=== PATIENT | female | born 1980 | race Caucasian/White ===

== ENCOUNTER 2017-09-20 01:43 | Emergency (ER) | payer OTHER ==
[~2017-09-20] VITALS: Ht 177.8 cm; Wt 119.7 kg
[~2017-09-20 01:43] MED LIST: ALBUTEROL17 G1 IH; BACTRIM,SEPT1 TABLET PO; MEDROL DOSEPAK4 MG PO; PROAIR HFA8.5 GM IH; TESSALON200 MG PO; ZYRTEC-D1 TABLE1 PO
[2017-09-20 02:29] LABS: HEMATOCRIT 38.2 % (36.0-46.0); HEMOGLOBIN 13.1 G/DL (11.9-15.5); MCH 29.2 PG (29.0-34.0); MCHC 34.3 G/DL (30.0-36.0); MCV 85.1 FL (83-99); PLATELET COUNT 259 K/uL (156-360); RBC DIS.WIDTH-CV 12.4 % (11.8-14.6); RBC DIS.WIDTH-SD 38.3 % (39-53); RED BLOOD COUNT 4.49 M/uL (3.80-5.20)
[2017-09-20 02:39] LABS: ALBUMIN 4.1 g/dL (3.2-4.8)
[2017-09-20 02:40] LABS: CHLORIDE 105 mEq/L (99-109); POTASSIUM 4.2 mEq/L (3.7-5.4); SODIUM 135 mEq/L (136-147)
[2017-09-20 02:42] LABS: GLUCOSE 112 mg/dL (70-99); TOTAL PROTEIN 7.3 g/dL (6.4-8.3)
[2017-09-20 02:44] LABS: TOTAL BILIRUBIN 0.4 mg/dL (0.0-1.0)
[2017-09-20 02:45] LABS: ALKALINE PHOSPHATASE 74 IU/L (3-129)
[2017-09-20 02:46] LABS: CREATININE 0.8 mg/dL (0.6-1.3); GFR ESTIMATE (CALCULATED) > 59 mL/min/
[2017-09-20 02:47] LABS: AST (GOT) 13 IU/L (2-34); UREA NITROGEN (BUN) 12 mg/dL (9-23)
[2017-09-20 02:48] LABS: ALT (GPT) 12 IU/L (3-49)
[2017-09-20 02:55] LABS: QUANTITATIVE HCG < 4.0 MIU/ML
[2017-09-20 04:24] LABS: APPEARANCE SL.HAZY ((CLEAR)); BILIRUBIN NEGATIVE; BLOOD SMALL; COLOR YELLOW ((YELLOW)); GLUCOSE (STRIP) NEGATIVE; KETONES NEGATIVE; LEUKOCYTES TRACE; NITRITE NEGATIVE; PROTEIN (STRIP) NEGATIVE; SPECIFIC GRAVITY 1.019 (1.000-1.030); UROBILINOGEN 0.2 MG/DL (0.2-1.0)
[2017-09-20 04:28] LABS: BACTERIA NONE SEEN /HPF; EPITHELIAL CELLS 1+ /HPF; MUCUS TRACE /LPF; RED BLOOD CELLS 0-5 /HPF (0-5); UCUL ADDED? NO; WHITE BLOOD CELLS 0-5 /HPF (0-5)
[2017-09-20] MEDS ORDERED: MOTRIN800 MG PO (04:49)
[2017-09-20 05:02] VITALS: BP 129/92
== END 2017-09-20 05:02 | disposition home or self-care (01) ==
LOC: EXP 01:43 → EME 01:43 → EXP 05:02
DX: N83.201 Unspecified ovarian cyst, right side (principal); R10.2 Pelvic and perineal pain; Z90.79 Acquired absence of other genital organ(s)
CPT/HCPCS: 76856; 80053; 81003; 84702; 85027; 99281; 99284; J1885